=== PATIENT | male | born 1980 | race African-American/Black ===

== ENCOUNTER 2019-07-08 05:46 | Emergency (ER) | payer MEDICAID ==
[~2019-07-08] VITALS: Ht 188 cm; Wt 84.0 kg
[2019-07-08 06:11] VITALS: BP 136/80
== END 2019-07-08 11:20 | disposition left against medical advice (07) ==
LOC: ER 05:46
DX: R19.7 Diarrhea, unspecified (principal); R10.9 Unspecified abdominal pain; R11.10 Vomiting, unspecified; Z53.21 Procedure and treatment not carried out due to patient leaving prior to being seen by health care provider